=== PATIENT | female | born 1995 | race Caucasian/White ===

== ENCOUNTER → 2016-10-28 | Outpatient (REF) | payer BC ==
[2016-10-28 12:11] LABS: BASO % 0.6 % (0.0-1.0); EOS # 0.7 K/mm3 (0.0-0.50); EOS % 8.6 % (0.0-3.0); LARGE UNSTAINED CELL # 0.1 K/mm3 (0.0-0.4); LYMPH # 1.7 K/mm3 (1.5-6.5); LYMPH % 19.5 % (24.0-44.0); MEAN CORPUSCULAR HEMOGLOBIN 26.3 pg (27.0-33.0); MEAN CORPUSCULAR HGB CONC 32.6 g/dl (32.0-36.5); MEAN CORPUSCULAR VOLUME 80.6 fl (80.0-96.0); MONO # 0.6 K/mm3 (0.0-0.8); MONO % 7.6 % (0.0-5.0); NEUTROPHILS # 5.1 K/mm3 (1.8-7.7); NEUTROPHILS % 62.7 % (36.0-66.0); PLATELET COUNT, AUTOMATED 317 k/mm3 (150-450); RED CELL DISTRIBUTION WIDTH 12.4 % (11.5-14.5); WHITE BLOOD COUNT 8.2 K/mm3 (4.0-10.0)
[2016-10-28 13:54] LABS: ALBUMIN 3.8 GM/DL (3.2-5.2); ALKALINE PHOSPHATASE 97 U/L (45-117); ALT/SGPT 22 U/L (12-78); ANION GAP 7 MEQ/L (8-16); AST/SGOT 15 U/L (15-37); BILIRUBIN,TOTAL 0.3 MG/DL (0.2-1.0); BLOOD UREA NITROGEN 14 MG/DL (7-18); CALCIUM LEVEL 8.8 MG/DL (8.5-10.1); CARBON DIOXIDE LEVEL 27 MEQ/L (21-32); CHLORIDE LEVEL 108 MEQ/L (98-107); CREATININE FOR GFR 0.67 MG/DL (0.55-1.02); GLOMERULAR FILTRATION RATE > 60.0 (>60); GLUCOSE, FASTING 75 MG/DL (70-105); POTASSIUM SERUM 4.2 MEQ/L (3.5-5.1); SODIUM LEVEL 142 MEQ/L (136-145); TOTAL PROTEIN 7.6 GM/DL (6.4-8.2)
== END ==
LOC: M SFHCPLAZ 10:06
PROVIDERS: ATTEND Physician Assistant
DX: R21 Rash and other nonspecific skin eruption (principal); D50.9 Iron deficiency anemia, unspecified; E55.9 Vitamin D deficiency, unspecified

== ENCOUNTER → 2016-12-26 | Outpatient (REF) | payer BC ==
[2016-12-30 14:15] LABS: VITAMIN D 1,25 DIHYDROXY 44.9 pg/mL (19.9-79.3)
== END ==
LOC: M SFHCPLAZ 15:41
PROVIDERS: ATTEND Family Medicine
DX: Z86.2 Personal history of diseases of the blood and blood-forming organs and certain disorders involving the immune mechanism (principal); E55.9 Vitamin D deficiency, unspecified; N92.0 Excessive and frequent menstruation with regular cycle

== ENCOUNTER 2017-04-14 20:24 | Day surgery (SDC) | payer BC ==
[2017-04-14 21:40] LABS: CONTROL LINE UCG INT CTR LINE PRESENT; KETONE, URINE AUTO RFX TRACE mg/dL (NEGATIVE); MUCUS, URINE RFX SMALL (NEGATIVE); NITRITE, URINE AUTO RFX NEGATIVE (NEGATIVE); RBC, URINE AUTO RFX 1 /HPF (0-3); SPECIFIC GRAVITY UR AUTO RFX 1.033 (1.002-1.035); SQUAM EPITHELIAL CELL UR AURFX 10 /HPF (0-6); URINE PREG TEST NEGATIVE (NEGATIVE); WBC, URINE AUTO RFX 8 /HPF (0-3)
[2017-04-14 21:41] LABS: BASO % 0.4 % (0.0-1.0); EOS # 0.7 10^3/uL (0.0-0.50); EOS % 11.4 % (0.0-3.0); HEMATOCRIT 40.3 % (36.0-47.0); HEMOGLOBIN 12.7 g/dl (12.0-16.0); IMMATURE GRANULOCYTE % 0.2 % (0-0); LEUKOCYTE ESTERASE UR AUTO RFX 1+ (NEGATIVE); LYMPH # 2.6 10^3/uL (1.5-6.5); LYMPH % 45.8 % (24.0-44.0); MEAN CORPUSCULAR HEMOGLOBIN 25.2 pg (27.0-33.0); MEAN CORPUSCULAR HGB CONC 31.5 g/dl (32.0-36.5); MONO # 0.5 10^3/uL (0.0-0.8); MONO % 8.2 % (0.0-5.0); NEUTROPHILS # 1.9 10^3/uL (1.8-7.7); PLATELET COUNT, AUTOMATED 302 10^3/uL (150-450); RED BLOOD COUNT 5.04 10^6/uL (4.00-5.40); RED CELL DISTRIBUTION WIDTH 12.5 % (11.5-14.5); WHITE BLOOD COUNT 5.7 10^3/uL (4.0-10.0)
[2017-04-14 21:59] LABS: ALBUMIN 3.6 GM/DL (3.2-5.2); ALKALINE PHOSPHATASE 90 U/L (45-117); ALT/SGPT 17 U/L (12-78); ANION GAP 6 MEQ/L (8-16); AST/SGOT 13 U/L (7-37); BILIRUBIN,TOTAL 0.1 MG/DL (0.2-1.0); BLOOD UREA NITROGEN 11 MG/DL (7-18); CALCIUM LEVEL 8.4 MG/DL (8.5-10.1); CARBON DIOXIDE LEVEL 26 MEQ/L (21-32); CHLORIDE LEVEL 109 MEQ/L (98-107); CREATININE FOR GFR 0.58 MG/DL (0.55-1.30); GLOMERULAR FILTRATION RATE > 60.0 (>60); GLUCOSE, FASTING 93 MG/DL (70-100); POTASSIUM SERUM 3.7 MEQ/L (3.5-5.1); SODIUM LEVEL 141 MEQ/L (136-145); TOTAL PROTEIN 7.6 GM/DL (6.4-8.2)
[2017-04-14] MEDS: NS 1,000 ML IV ×2 (22:13)
[2017-04-14] MEDS ORDERED: ISOVUE-370 76% 100ML VIAL (Q9967) As Ordered ×2 (22:36)
[2017-04-14] MEDS: CLINDAMYCIN 900 MG in APPROPRIATE DILUENT 1 EA IV (23:15)
[2017-04-14] MEDS ORDERED: NEOSTIGMINE 10 MG/10 ML VIAL (J2710) ×2 (23:27)
[2017-04-14] MEDS ORDERED: MORPHINE 4 MG/ML 1ML VIAL IV (23:30)
[2017-04-14] MEDS ORDERED: MORPHINE 4 MG/ML 1ML VIAL (J2270) IV (23:30)
[2017-04-14] MEDS ORDERED: NORCO, ANEXSIA 5/325MG TABLET (HYDROcodone/ACETAMINOPHEN) PO ×2 (23:30)
[2017-04-14] MEDS ORDERED: MORPHINE 2 MG/ML 1ML SYRINGE IV (23:30)
[2017-04-14] MEDS ORDERED: MORPHINE 2 MG/ML 1ML SYRINGE (J2270) IV (23:30)
[2017-04-15] MEDS ORDERED: metroNIDAZOLE/NACL 500MG(5MG/ML)100 ML BAG (S0030) As Ordered ×2 (00:13)
[2017-04-15] MEDS: metroNIDAZOLE 500 MG in APPROPRIATE DILUENT 1 EA IV ×4 (00:17→23:48)
[2017-04-15] MEDS: CIPROFLOXACIN 400 MG in APPROPRIATE DILUENT 1 EA IV ×2 (01:40→12:20)
[2017-04-15] MEDS: LR 1,000 ML IV ×6 (01:40→19:00)
[2017-04-15] MEDS ORDERED: MIDAZOLAM INJ 2 MG/2 ML VIAL (J2250) As Ordered ×2 (17:46)
[2017-04-15] MEDS ORDERED: fentaNYL 100 MCG/2 ML INJECTION (J3010) As Ordered ×6 (17:47→19:12)
[2017-04-15] MEDS ORDERED: PROPOFOL 200 MG/20 ML VIAL As Ordered ×2 (17:48)
[2017-04-15] MEDS ORDERED: dexameTHASONE 4 MG/ML 1ML VIAL (J1100) As Ordered ×2 (18:39)
[2017-04-15] MEDS ORDERED: NEOSTIGMINE 10 MG/10 ML VIAL (J2710) As Ordered ×2 (18:39)
[2017-04-15] MEDS: BUPIVACAINE HCL 0.25% 10 ML VIAL As Ordered ×2 (18:39)
[2017-04-15] MEDS ORDERED: GLYCOPYRROLATE INJ 0.2 MG/ML 2 ML VIAL As Ordered ×2 (18:39)
[2017-04-15] MEDS ORDERED: ONDANSETRON 4MG/2ML VIAL (J2405) As Ordered ×4 (18:39→19:24)
[2017-04-15] MEDS: LIDOCAINE 1% MDV 20ML VIAL As Ordered ×2 (18:39)
[2017-04-15] MEDS ORDERED: KETOROLAC 60 MG/2 ML VIAL (J1885) As Ordered ×2 (18:39)
[2017-04-15] MEDS ORDERED: ALBUTEROL SULFATE 2.5 MG/0.5 ML INH NEB SOLN As Ordered ×2 (18:58)
[2017-04-15] MEDS ORDERED: HYDROmorphone HCL 1 MG/ML SYRINGE (J1170) IV ×2 (19:00)
[2017-04-15] MEDS ORDERED: ONDANSETRON 4MG/2ML VIAL (J2405) IV ×2 (19:00)
[2017-04-15] MEDS ORDERED: LORATADINE 10 MG TAB PO ×2 (19:00)
[2017-04-15] MEDS ORDERED: ALBUTEROL 90 MCG/ACT 8GM HFA INHALER INH ×2 (19:00)
[2017-04-15] MEDS ORDERED: METOCLOPRAMIDE INJ 10MG/2ML VIAL (J2765) IV ×2 (19:00)
[2017-04-15] MEDS: ALBUTEROL SULFATE 2.5 MG/0.5 ML INH NEB SOLN INH ×4 (19:11)
[2017-04-15] MEDS ORDERED: PERCOCET 5MG/325MG TAB As Ordered ×4 (19:12→19:45)
[2017-04-15] MEDS: PERCOCET 5MG/325MG TAB PO ×4 (19:19→19:46)
[2017-04-15] MEDS: fentaNYL 100 MCG/2 ML INJECTION (J3010) IV ×4 (19:20→19:26)
[2017-04-15] MEDS: ONDANSETRON 4MG/2ML VIAL (J2405) IV ×2 (19:25)
[2017-04-15] MEDS: NORCO, ANEXSIA 5/325MG TABLET (HYDROcodone/ACETAMINOPHEN) PO ×2 (22:40)
[2017-04-16] MEDS: LR 1,000 ML IV ×2 (01:26)
[2017-04-16] MEDS: CIPROFLOXACIN 400 MG in APPROPRIATE DILUENT 1 EA IV (01:26)
[2017-04-16] MEDS: metroNIDAZOLE 500 MG in APPROPRIATE DILUENT 1 EA IV (08:00)
[2017-04-16] MEDS: ACETAMINOPHEN TAB 650MG DOSE (2X325MG) PO ×2 (10:02)
[2017-04-17] MEDS ORDERED: FERROUS SULFATE 325MG TAB PO ×2 (09:00)
== END 2017-04-16 10:47 | disposition home or self-care (01) ==
LOC: M SDC 04-16 10:47 → M PED 04-15 00:55 → M ED 20:24 → M SDC 23:26
DX: K35.89 Other acute appendicitis (principal)
CPT/HCPCS: 44970

== ENCOUNTER → 2017-04-21 | Outpatient (REF) | payer BC ==
[2017-04-21 16:02] LABS: BASO % 0.3 % (0.0-1.0); EOS # 0.7 10^3/uL (0.0-0.50); EOS % 7.5 % (0.0-3.0); HEMATOCRIT 43.3 % (36.0-47.0); HEMOGLOBIN 13.4 g/dl (12.0-16.0); IMMATURE GRANULOCYTE % 0.4 % (0-0); LYMPH # 2.2 10^3/uL (1.5-6.5); LYMPH % 24.2 % (24.0-44.0); MEAN CORPUSCULAR HEMOGLOBIN 25.3 pg (27.0-33.0); MEAN CORPUSCULAR HGB CONC 30.9 g/dl (32.0-36.5); MEAN CORPUSCULAR VOLUME 81.9 fl (80.0-96.0); MONO # 0.5 10^3/uL (0.0-0.8); MONO % 5.8 % (0.0-5.0); NEUTROPHILS # 5.6 10^3/uL (1.8-7.7); NEUTROPHILS % 61.8 % (36.0-66.0); PLATELET COUNT, AUTOMATED 384 10^3/uL (150-450); RED BLOOD COUNT 5.29 10^6/uL (4.00-5.40); RED CELL DISTRIBUTION WIDTH 12.7 % (11.5-14.5); WHITE BLOOD COUNT 9.1 10^3/uL (4.0-10.0)
[2017-04-21 16:22] LABS: IRON (FE) 120 UG/DL (50-170)
== END ==
LOC: M SFHCPLAZ 12:20
DX: E61.1 Iron deficiency (principal)
CPT/HCPCS: 83540

== ENCOUNTER → 2017-05-25 | Outpatient (REF) | payer BC ==
[2017-05-25 22:27] LABS: APPEARANCE, URINE CLOUDY (CLEAR); BACTERIA, URINE AUTO 1+ (NEGATIVE); BILIRUBIN, URINE AUTO NEGATIVE (NEGATIVE); BLOOD, URINE BLOOD 1+ (NEGATIVE); COLOR, URINE YELLOW (YELLOW); GLUCOSE, URINE (UA) AUTO NEGATIVE (NEGATIVE); KETONE, URINE AUTO NEGATIVE (NEGATIVE); LEUKOCYTE ESTERASE, URINE AUTO 1+ (NEGATIVE); MUCUS, URINE SMALL (NEGATIVE); NITRITE, URINE AUTO NEGATIVE (NEGATIVE); PROTEIN, URINE AUTO NEGATIVE (NEGATIVE); RBC, URINE AUTO 1 /HPF (0-3); SPECIFIC GRAVITY URINE AUTO 1.024 (1.002-1.035); SQUAMOUS EPITHELIAL CELL UR AU 18 /HPF (0-6); UROBILINOGEN, URINE AUTO 0.2 mg/dL (0.0-2.0); WBC, URINE AUTO 3 /HPF (0-3)
== END ==
LOC: M LAB REF 21:34
DX: N39.0 Urinary tract infection, site not specified (principal)
CPT/HCPCS: 81001

== ENCOUNTER 2017-07-29 07:01 | Emergency (ER) | payer BC | END 2017-07-29 07:52 | disposition home or self-care (01) | LOC: M ED 07:01 | DX: H00.016 Hordeolum externum left eye, unspecified eyelid (principal); J45.909 Unspecified asthma, uncomplicated | CPT/HCPCS: 99283 ==

== ENCOUNTER → 2017-09-18 | Outpatient (REF) | payer BC ==
[2017-09-18 13:52] LABS: CHLAMYDIA DNA AMPLIFICATION NEGATIVE (NEGATIVE); GC DNA AMPLIFICATION NEGATIVE (NEGATIVE)
== END ==
LOC: M LAB REF 11:55
DX: R30.0 Dysuria (principal)
CPT/HCPCS: 87186

== ENCOUNTER → 2018-01-18 | Outpatient (CLI) | payer BC | LOC: M RAD 12:09 | DX: M25.571 Pain in right ankle and joints of right foot (principal) | CPT/HCPCS: 73610 ==

== ENCOUNTER → 2018-01-19 | Outpatient (CLI) | payer BC | LOC: M RAD 17:38 | DX: R22.9 Localized swelling, mass and lump, unspecified (principal) | CPT/HCPCS: 76882 ==

== ENCOUNTER → 2018-05-10 | Outpatient (REF) | payer BC ==
[~2018-05-10] MED LIST: CEFD1CAP8 PO; CLAR1TAB2 PO; ERYTOIN8 OS; FERR325T3 PO; IBUP-1022 PO; IBUPOTC PO; KETO10TAB PO; MACR100C43 PO; NORCOTAB PO; ONDA4TAB6 PO; VENTAER INH; VITA100066 PO; [UNRECOGNIZED DRUG - CODE] OU
[2018-05-10 19:40] LABS: CHLAMYDIA DNA AMPLIFICATION NEGATIVE (NEGATIVE); GC DNA AMPLIFICATION NEGATIVE (NEGATIVE)
== END ==
LOC: M LAB REF 17:00
PROVIDERS: ATTEND Physician Assistant
DX: Z11.3 Encounter for screening for infections with a predominantly sexual mode of transmission (principal); N77.1 Vaginitis, vulvitis and vulvovaginitis in diseases classified elsewhere

== ENCOUNTER 2018-05-11 08:19 | Emergency (ER) | payer BC ==
[~2018-05-11] VITALS: Ht 167.6 cm; Wt 84.1 kg
[~2018-05-11 08:19] MED LIST changes: -KETO10TAB PO; -MACR100C43 PO; -ONDA4TAB6 PO
[2018-05-11 09:06] LABS: URINE PREG TEST NEGATIVE (NEGATIVE)
[2018-05-11 09:14] LABS: APPEARANCE, URINE CLEAR (CLEAR); BACTERIA, URINE AUTO NEGATIVE (NEGATIVE); BILIRUBIN, URINE AUTO NEGATIVE (NEGATIVE); BLOOD, URINE BLOOD 2+ (NEGATIVE); COLOR, URINE YELLOW (YELLOW); GLUCOSE, URINE (UA) AUTO NEGATIVE (NEGATIVE); KETONE, URINE AUTO NEGATIVE (NEGATIVE); LEUKOCYTE ESTERASE, URINE AUTO 1+ (NEGATIVE); NITRITE, URINE AUTO NEGATIVE (NEGATIVE); PROTEIN, URINE AUTO NEGATIVE (NEGATIVE); RBC, URINE AUTO 5 /HPF (0-3); SPECIFIC GRAVITY URINE AUTO 1.018 (1.002-1.035); SQUAMOUS EPITHELIAL CELL UR AU 4 /HPF (0-6); UROBILINOGEN, URINE AUTO 0.2 mg/dL (0.0-2.0); WBC, URINE AUTO 15 /HPF (0-3)
[2018-05-11] MEDS ORDERED: KETOROLAC 30 MG/ML VIAL (J1885) IV ONE (09:15)
[2018-05-11] MEDS ORDERED: ONDANSETRON 4MG/2ML VIAL (J2405) IV ONE (09:15)
[2018-05-11] MEDS: GASTROGRAFIN SOLUTION 30ML PO SCH ×2 (09:37→10:27)
[2018-05-11 09:46] LABS: BASO # 0.1 10^3/uL (0.0-0.2); BASO % 0.3 % (0.0-1.0); EOS # 0.2 10^3/uL (0.0-0.50); EOS % 1.3 % (0.0-3.0); HEMATOCRIT 42.4 % (36.0-47.0); HEMOGLOBIN 13.2 g/dl (12.0-15.5); LYMPH # 1.3 10^3/uL (1.5-6.5); LYMPH % 7.1 % (24.0-44.0); MEAN CORPUSCULAR HEMOGLOBIN 25.4 pg (27.0-33.0); MEAN CORPUSCULAR HGB CONC 31.1 g/dl (32.0-36.5); MEAN CORPUSCULAR VOLUME 81.5 fl (80.0-96.0); MONO # 1.2 10^3/uL (0.0-0.8); MONO % 6.8 % (0.0-5.0); NEUTROPHILS # 15.3 10^3/uL (1.8-7.7); NEUTROPHILS % 83.8 % (36.0-66.0); PLATELET COUNT, AUTOMATED 294 10^3/uL (150-450); WHITE BLOOD COUNT 18.3 10^3/uL (4.0-10.0)
[2018-05-11] MEDS ORDERED: ISOVUE-370 76% 100ML VIAL (Q9967) As Ordered ONE (10:05)
[2018-05-11 10:13] LABS: ALBUMIN 3.9 GM/DL (3.2-5.2); ALT/SGPT 33 U/L (12-78); AMYLASE 48 U/L (25-115); BILIRUBIN,TOTAL 0.5 MG/DL (0.2-1.0); BLOOD UREA NITROGEN 8 MG/DL (7-18); C REACTIVE PROTEIN QUANTITATIV 8.03 MG/DL (0.00-0.30); CALCIUM LEVEL 8.5 MG/DL (8.5-10.1); CARBON DIOXIDE LEVEL 25 MEQ/L (21-32); CHLORIDE LEVEL 103 MEQ/L (98-107); CREATININE FOR GFR 0.62 MG/DL (0.55-1.30); GLOMERULAR FILTRATION RATE > 60.0 (>60); GLUCOSE, FASTING 106 MG/DL (70-100); LIPASE 54 U/L (73-393); POTASSIUM SERUM 3.8 MEQ/L (3.5-5.1); SODIUM LEVEL 135 MEQ/L (136-145); TOTAL PROTEIN 8.5 GM/DL (6.4-8.2)
[2018-05-11] MEDS ORDERED: MORPHINE 4 MG/ML 1ML VIAL/SYRINGE (J2270) IV ONE (11:00)
--- NOTE | 2018-05-11 11:48 | REP ---
Clinical: Acute abdominal pain. Technique: Axial contrast enhanced images from the lung bases to the pubic symphysis using oral (per protocol) and 100 ml Isovue 370 intravenous contrast material. Comparison: 04/15/2017. Findings: Lung bases demonstrate minimal posterior basilar dependent changes. Liver, spleen, pancreas, gallbladder, bilateral adrenal glands and kidneys are normal. The enteric system is without obstruction or acute inflammatory process. Normal cecum and terminal ileum identified in the right lower quadrant with history of prior appendectomy. Pelvis demonstrates normal bladder and age-appropriate uterus/adnexa. IUD identified in satisfactory position. 3 cm right ovarian cyst cannot be excluded. Abdominal aorta and vasculature appears normal. No ascites. No free air. No adenopathy. Musculoskeletal structures are intact. Impression: 1. No obvious acute abdominopelvic pathology. 2. 3 cm right ovarian cyst likely physiologic. 3. No ascites, adenopathy, or focal inflammatory changes. Electronically Signed by Nikunj Kuhn MD 05/11/2018 11:38 A
--- NOTE | 2018-05-11 13:04 | REP ---
Clinical: Pelvic pain. Ovarian cyst. Technique: Transabdominal pelvic ultrasound followed by transvaginal examination for better evaluation of the endometrium and adnexa with color Doppler evaluation of the ovaries. Findings: Normal anteverted uterus measures 6.9 x 3.5 x 6.0 cm. Endometrial complex measures 5.8 mm thickness. IUD is identified in satisfactory position. Bilateral ovaries are relatively normal in appearance and vascularity without torsion. Left ovary measures 2.5 x 1.6 x 1.8 cm; RI 0.46. Right ovary measures 4.7 x 2.7 x 4.8 cm and includes 2.9 cm simple cyst; RI 0.35. No pelvic fluid or adnexal mass lesion. Impression: 2.9 cm simple right ovarian cyst. IUD in satisfactory position. Essentially unremarkable pelvic ultrasound. Electronically Signed by Nikunj Kuhn MD 05/11/2018 12:56 P
[2018-05-11] MEDS ORDERED: MACR100C43 PO (13:10)
[2018-05-11] MEDS ORDERED: KETO10TAB PO (13:10)
[2018-05-11] MEDS ORDERED: ONDA4TAB6 PO (13:10)
[2018-05-11 13:14] VITALS: BP 116/65
== END 2018-05-11 13:27 | disposition home or self-care (01) ==
LOC: M ED 08:19
DX: N39.0 Urinary tract infection, site not specified (principal); N83.201 Unspecified ovarian cyst, right side; R11.0 Nausea; J45.909 Unspecified asthma, uncomplicated; D50.9 Iron deficiency anemia, unspecified; Z88.0 Allergy status to penicillin; Z97.5 Presence of (intrauterine) contraceptive device
CPT/HCPCS: 36415; 74177; 76376; 76830; 76856; 80053; 81001; 82150; 83690; 84703; 85025; 86140; 93976; 96374; 96375; 99284; J1885; J2270; J2405; Q9963; Q9967

== ENCOUNTER → 2018-10-04 | Outpatient (REF) | payer BC ==
[~2018-10-04] MED LIST changes: +HYDR-3715 PO; +KETO10TAB PO; +MACR100C43 PO; -NORCOTAB PO; +ONDA4TAB6 PO
[2018-10-04 18:02] LABS: MONO SCRN NEGATIVE (NEGATIVE)
== END ==
LOC: M LABNEURO 17:06
PROVIDERS: ATTEND Physician Assistant Medical
DX: R53.83 Other fatigue (principal)

== ENCOUNTER → 2018-10-20 | Outpatient (REF) | payer BC ==
[2018-10-20 12:50] LABS: BASO # 0.1 10^3/uL (0.0-0.2); BASO % 0.7 % (0.0-1.0); EOS % 12.2 % (0.0-3.0); HEMOGLOBIN 13.3 g/dl (12.0-15.5); LYMPH # 2.8 10^3/uL (1.5-6.5); LYMPH % 33.6 % (24.0-44.0); MEAN CORPUSCULAR HEMOGLOBIN 25.2 pg (27.0-33.0); MEAN CORPUSCULAR HGB CONC 30.9 g/dl (32.0-36.5); MEAN CORPUSCULAR VOLUME 81.4 fl (80.0-96.0); MONO # 0.5 10^3/uL (0.0-0.8); MONO % 6.6 % (0.0-5.0); NEUTROPHILS # 3.8 10^3/uL (1.8-7.7); NEUTROPHILS % 46.8 % (36.0-66.0); PLATELET COUNT, AUTOMATED 349 10^3/uL (150-450); RED BLOOD COUNT 5.28 10^6/uL (4.00-5.40); WHITE BLOOD COUNT 8.2 10^3/uL (4.0-10.0)
[2018-10-20 13:04] LABS: PERCENT SATURATION 20.3 % (13.2-45.0); THYROID STIMULATING HORMONE 2.01 uIU/ML (0.358-3.740)
[2018-10-20 14:37] LABS: HEMOGLOBIN A1c 5.9 %
== END ==
LOC: M SFHCPLAZ 09:23
PROVIDERS: ATTEND Family Medicine
DX: E61.1 Iron deficiency (principal); N92.0 Excessive and frequent menstruation with regular cycle; R63.2 Polyphagia

== ENCOUNTER → 2019-01-03 | Outpatient (REF) | payer BC ==
[2019-01-03 21:50] LABS: APPEARANCE, URINE HAZY (CLEAR); BACTERIA, URINE AUTO NEGATIVE (NEGATIVE); BILIRUBIN, URINE AUTO NEGATIVE (NEGATIVE); BLOOD, URINE BLOOD NEGATIVE (NEGATIVE); COLOR, URINE YELLOW (YELLOW); GLUCOSE, URINE (UA) AUTO NEGATIVE (NEGATIVE); KETONE, URINE AUTO NEGATIVE (NEGATIVE); LEUKOCYTE ESTERASE, URINE AUTO NEGATIVE (NEGATIVE); NITRITE, URINE AUTO NEGATIVE (NEGATIVE); PROTEIN, URINE AUTO NEGATIVE (NEGATIVE); RBC, URINE AUTO 1 /HPF (0-3); SPECIFIC GRAVITY URINE AUTO 1.019 (1.002-1.035); SQUAMOUS EPITHELIAL CELL UR AU 1 /HPF (0-6); UROBILINOGEN, URINE AUTO 0.2 mg/dL (0.0-2.0); WBC, URINE AUTO 2 /HPF (0-3)
== END ==
LOC: M LAB REF 10:26
PROVIDERS: ATTEND Physician Assistant Medical
DX: N39.0 Urinary tract infection, site not specified (principal)

== ENCOUNTER → 2019-03-10 | Outpatient (CLI) | payer BC ==
--- NOTE | 2019-03-10 19:42 | REP ---
RIGHT 4TH TOE: Four views of the right 4th toe are performed. There is no evidence of acute fracture, dislocation, or intrinsic bone disease. IMPRESSION: No fracture or dislocation. Electronically Signed by Evans Gonzales MD 03/10/2019 07:53 P
== END ==
LOC: M RAD 18:38
PROVIDERS: ATTEND Physician Assistant
DX: S99.921A Unspecified injury of right foot, initial encounter (principal); W22.09XA Striking against other stationary object, initial encounter

== ENCOUNTER → 2019-05-10 | Outpatient (REF) | payer BC | LOC: M SFHCPLAZ 15:53 | PROVIDERS: ATTEND Physician Assistant | DX: Z53.9 Procedure and treatment not carried out, unspecified reason (principal) ==

== ENCOUNTER → 2019-05-11 | Outpatient (REF) | payer BC ==
[2019-05-11 10:08] LABS: BASO # 0.1 10^3/uL (0.0-0.2); BASO % 0.8 % (0.0-1.0); EOS # 0.7 10^3/uL (0.0-0.5); EOS % 7.5 % (0.0-3.0); HEMATOCRIT 41.1 % (36.0-47.0); HEMOGLOBIN 12.9 g/dl (12.0-15.5); LYMPH # 2.2 10^3/uL (1.5-5.0); LYMPH % 24.9 % (24.0-44.0); MEAN CORPUSCULAR HEMOGLOBIN 25.9 pg (27.0-33.0); MEAN CORPUSCULAR HGB CONC 31.4 g/dl (32.0-36.5); MEAN CORPUSCULAR VOLUME 82.5 fl (80.0-96.0); MONO # 0.6 10^3/uL (0.0-0.8); MONO % 7.1 % (0.0-5.0); NEUTROPHILS # 5.2 10^3/uL (1.5-8.5); NEUTROPHILS % 59.2 % (36.0-66.0); PLATELET COUNT, AUTOMATED 348 10^3/uL (150-450); RED BLOOD COUNT 4.98 10^6/uL (4.00-5.40); WHITE BLOOD COUNT 8.8 10^3/uL (4.0-10.0)
[2019-05-11 10:53] LABS: ALBUMIN 3.7 GM/DL (3.2-5.2); ALT/SGPT 23 U/L (12-78); BILIRUBIN,TOTAL 0.4 MG/DL (0.2-1.0); BLOOD UREA NITROGEN 8 MG/DL (7-18); CALCIUM LEVEL 8.9 MG/DL (8.5-10.1); CARBON DIOXIDE LEVEL 26 MEQ/L (21-32); CHLORIDE LEVEL 105 MEQ/L (98-107); CREATININE FOR GFR 0.64 MG/DL (0.55-1.30); FERRITIN 27 NG/ML (8-252); FREE T4 0.96 NG/DL (0.76-1.46); GLOMERULAR FILTRATION RATE > 60.0 (>60); GLUCOSE, FASTING 88 MG/DL (70-100); IRON (FE) 67 UG/DL (50-170); PERCENT SATURATION 19.3 % (13.2-45.0); POTASSIUM SERUM 4.2 MEQ/L (3.5-5.1); SODIUM LEVEL 138 MEQ/L (136-145); THYROGLOBULIN ANTIBODY 279.6 U/ML (<60.0); THYROID PEROXIDASE ANTIBODY < 28.0 U/ML (<60.0); TOTAL 25(OH) VITAMIN D 17.4 NG/ML (30.0-100.0); TOTAL IRON BINDING CAPACITY 348 UG/DL (250-450); TOTAL PROTEIN 7.2 GM/DL (6.4-8.2)
== END ==
LOC: M SFHCPLAZ 08:11
PROVIDERS: ATTEND Physician Assistant
DX: R53.83 Other fatigue (principal); Z83.49 Family history of other endocrine, nutritional and metabolic diseases

== ENCOUNTER → 2021-08-21 | Outpatient (CLI) | payer BC ==
[~2021-08-21] MED LIST changes: -CEFD1CAP8 PO; +CEFD300C41 PO
== END ==
LOC: M WHC 13:08
PROVIDERS: ATTEND Physician Assistant Surgical
DX: M79.662 Pain in left lower leg (principal)

== ENCOUNTER → 2022-06-16 | Outpatient (CLI) | payer OTHER ==
[2022-06-16 19:18] LABS: THYROID STIMULATING HORMONE 1.756 uIU/ML (0.55-4.78)
[2022-06-16 19:21] LABS: FREE T4 0.97 NG/DL (0.89-1.76)
== END ==
LOC: M LAB 16:32
PROVIDERS: ATTEND Nurse Practitioner Family
DX: E03.9 Hypothyroidism, unspecified (principal)

== ENCOUNTER → 2023-02-03 | Outpatient (CLI) | payer SELFPAY ==
[~2023-02-03] MED LIST changes: -CEFD300C41 PO; +CEFD300C42 PO
== END ==
LOC: M LAB 13:10
PROVIDERS: ATTEND Nurse Practitioner Family
DX: E03.9 Hypothyroidism, unspecified (principal)

== ENCOUNTER → 2023-06-09 | Outpatient (REF) | payer OTHER ==
[~2023-06-09] MED LIST changes: +CEFD1CAP9 PO; -CEFD300C42 PO
== END ==
LOC: M LAB REF 10:20
PROVIDERS: ATTEND Nurse Practitioner Family
DX: R30.0 Dysuria (principal)

== ENCOUNTER → 2024-02-18 | Outpatient (REF) | payer OTHER ==
[~2024-02-18] MED LIST changes: +ONDA-282 PO; -ONDA4TAB6 PO
[2024-02-18 13:38] LABS: HEMATOCRIT 42.4 % (36.0-47.0); HEMOGLOBIN 12.8 g/dl (12.0-15.5); MEAN CORPUSCULAR HEMOGLOBIN 23.9 pg (27.0-33.0); MEAN CORPUSCULAR HGB CONC 30.2 g/dl (32.0-36.5); MEAN CORPUSCULAR VOLUME 79.3 fl (80.0-96.0); PLATELET COUNT, AUTOMATED 397 10^3/uL (150-450); RED BLOOD COUNT 5.35 10^6/uL (4.00-5.40); WHITE BLOOD COUNT 6.7 10^3/uL (4.0-10.0)
[2024-02-18 13:44] LABS: FERRITIN 11.6 NG/ML (7.3-270.7)
[2024-02-18 13:47] LABS: FOLATE > 24.0 NG/ML (>5.4); TOTAL 25(OH) VITAMIN D 10.4 NG/ML (20.0-100.0)
[2024-02-18 13:48] LABS: ALBUMIN 4.1 G/DL (3.2-5.2); ALKALINE PHOSPHATASE 75 U/L (35-104); ALT/SGPT 14 U/L (7.0-40); AST/SGOT 9 U/L (<34); BILIRUBIN,TOTAL 0.6 MG/DL (0.3-1.2); BLOOD UREA NITROGEN 10 MG/DL (9-23); CALCIUM LEVEL 9.6 MG/DL (8.5-10.1); CARBON DIOXIDE LEVEL 25 MMOL/L (20-31); CHLORIDE LEVEL 106 MMOL/L (98-107); CHOLESTEROL LEVEL 222 MG/DL (<200); CHOLESTEROL RISK RATIO 3.22 (<5); CREATININE FOR GFR 0.64 MG/DL (0.55-1.30); GLOMERULAR FILTRATION RATE > 60.0 (>60); GLUCOSE, FASTING 81 MG/DL (60-100); HDL CHOLESTEROL 68.8 MG/DL (>40); LDL CHOLESTEROL 130.4 MG/DL (<100); NON-HDL-C 153.2 MG/DL; POTASSIUM SERUM 4.4 MMOL/L (3.5-5.1); SODIUM LEVEL 139 MMOL/L (136-145); TOTAL PROTEIN 7.9 G/DL (5.7-8.2); TRIGLYCERIDES LEVEL 114 MG/DL (<150); VITAMIN B12 LEVEL 387 PG/ML (211-911)
[2024-02-18 13:49] LABS: IRON (FE) 141 UG/DL (50-170)
[2024-02-18 14:05] LABS: HEMOGLOBIN A1c 5.5 % (4.0-6.0)
== END ==
LOC: M SFHCPLAZ 10:02
PROVIDERS: ATTEND Nurse Practitioner Family
DX: Z13.220 Encounter for screening for lipoid disorders (principal); Z13.1 Encounter for screening for diabetes mellitus; R53.83 Other fatigue

== ENCOUNTER → 2024-10-16 | Outpatient (REF) | payer OTHER | LOC: M LAB REF 19:28 | PROVIDERS: ATTEND Physician Assistant | DX: J02.9 Acute pharyngitis, unspecified (principal) ==

== ENCOUNTER → 2024-10-18 | Outpatient (CLI) | payer OTHER ==
[2024-10-18 15:49] LABS: BASO # 0.1 10^3/uL (0.0-0.2); BASO % 1.0 % (0.0-1.0); EOS # 0.6 10^3/uL (0.0-0.5); EOS % 7.3 % (0.0-3.0); LYMPH # 2.3 10^3/uL (1.5-5.0); LYMPH % 28.2 % (24.0-44.0); MONO # 0.4 10^3/uL (0.0-0.8); MONO % 5.3 % (2.0-8.0); NEUTROPHILS # 4.7 10^3/uL (1.5-8.5); NEUTROPHILS % 57.8 % (36.0-66.0); PLATELET COUNT, AUTOMATED 393 10^3/uL (150-450)
[2024-10-18 15:58] LABS: ERYTHROCYTE SEDIMENTATION RATE 42 mm/hr (0-20)
[2024-10-18 16:15] LABS: C REACTIVE PROTEIN QUANTITATIV < 0.50 MG/DL (<1.0)
[2024-10-18 16:16] LABS: ALT/SGPT 15 U/L (7.0-40); AST/SGOT 17 U/L (<34); CALCIUM LEVEL 8.6 MG/DL (8.5-10.1); CARBON DIOXIDE LEVEL 26 MMOL/L (20-31); CHLORIDE LEVEL 103 MMOL/L (98-107); CREATININE FOR GFR 0.96 MG/DL (0.55-1.30); GLOMERULAR FILTRATION RATE 81.6 (>60); POTASSIUM SERUM 4.2 MMOL/L (3.5-5.1); SODIUM LEVEL 139 MMOL/L (136-145)
[2024-10-18 16:17] LABS: ANTI-STREPTOLYSIN O QUANT 601.1 IU/ML (<195)
== END ==
LOC: M WUC 12:37
PROVIDERS: ATTEND Physician Assistant
DX: J02.9 Acute pharyngitis, unspecified (principal)

== ENCOUNTER → 2024-11-16 | Outpatient (CLI) | payer OTHER ==
[~2024-11-16] MED LIST changes: -IBUP-1022 PO; +IBUP600T42 PO
[2024-11-16 16:08] LABS: PLATELET COUNT, AUTOMATED 402 10^3/uL (150-450)
[2024-11-16 16:28] LABS: IRON (FE) 30.0 UG/DL (50-170); PERCENT SATURATION 8.2 % (13.2-45.0)
[2024-11-16 16:29] LABS: ANTI-STREPTOLYSIN O QUANT 646.1 IU/ML (<195)
== END ==
LOC: M PLALAB 10:40
PROVIDERS: ATTEND Nurse Practitioner Family
DX: J02.0 Streptococcal pharyngitis (principal)

== ENCOUNTER → 2024-12-20 | Outpatient (CLI) | payer OTHER ==
[2024-12-20 18:35] LABS: PLATELET COUNT, AUTOMATED 403 10^3/uL (150-450)
[2024-12-20 19:07] LABS: IRON (FE) 24.0 UG/DL (50-170); PERCENT SATURATION 5.9 % (13.2-45.0)
[2024-12-20 19:10] LABS: FREE T4 1.15 NG/DL (0.89-1.76)
== END ==
LOC: M PLALAB 15:38
PROVIDERS: ATTEND Nurse Practitioner Family
DX: D50.9 Iron deficiency anemia, unspecified (principal); R53.83 Other fatigue